=== PATIENT | female | born 1965 | race African-American/Black ===

== ENCOUNTER 2020-09-07 11:26 | Emergency (ER) | payer MEDICAID ==
[~2020-09-07] VITALS: Ht 152.4 cm; Wt 87.0 kg
[2020-09-07] MEDS ORDERED: ACETAMINOPHEN 325MG TABLET PO STA (11:57)
[2020-09-07] MEDS ORDERED: ONDANSETRON 4MG ODT PO STA (11:57)
[2020-09-07] MEDS ORDERED: FAMOTIDINE 20MG TABLET PO ONE (12:00)
[2020-09-07] MEDS ORDERED: MAGNESIUM CITRATE 300ML SOLUTION PO ONE (12:15)
[2020-09-07 12:21] LABS: BASOPHILS % 0.9 % (0.0-2.0); EOSINOPHILS % 2.5 % (0.0-5.0); HEMATOCRIT. 42.8 % (36.0-48.0); HEMOGLOBIN. 14.3 g/dL (12.0-16.0); LYMPHOCYTES % 28.3 % (20.0-50.0); MEAN CORPUSCULAR HEMOGLOBIN 32.3 pg (28.0-32.0); MEAN CORPUSCULAR VOLUME 96.5 fL (81.0-99.0); MEAN PLATELET VOLUME 9.3 fl (7.4-10.4); MONOCYTES % 5.1 % (2.0-8.0); NEUTROPHILS % 63.2 % (40.0-76.0); PLATELET 260 x1000/uL (130-400); RED BLOOD CELL COUNT 4.44 mill/uL (4.2-5.4); RED CELL DISTRIBUTION WIDTH 15.9 % (11.6-14.6)
[2020-09-07 12:26] LABS: CHLORIDE 107 mEq/L (98-107)
[2020-09-07 12:31] LABS: PROTHROMBIN TIME 10.1 sec (9.6-11.0)
[2020-09-07] MEDS ORDERED: SODIUM CHLORIDE 0.9% 1,000 ML IV ONE (13:15)
[2020-09-07] MEDS ORDERED: MORPHINE SULFATE 4 MG/ML CPJ (NOT FOR IM USE) IV SCH (14:30)
[2020-09-07] MEDS ORDERED: ONDA4TAB5 MT (17:27)
[2020-09-07 18:23] VITALS: BP 152/93
== END 2020-09-07 18:18 | disposition home or self-care (01) ==
LOC: ER 12:01 → CANBEDREQ 17:43 → ER 18:18
DX: K85.90 Acute pancreatitis without necrosis or infection, unspecified (principal); E11.9 Type 2 diabetes mellitus without complications; I10 Essential (primary) hypertension; Z98.890 Other specified postprocedural states; Z90.710 Acquired absence of both cervix and uterus; Z79.899 Other long term (current) drug therapy
CPT/HCPCS: 36415; 76705; 80053; 83690; 84478; 85025; 85610; 93005; 96361; 96374; 99285; J2270; Q0162

== ENCOUNTER 2020-09-21 21:56 | Emergency (ER) | payer MEDICAID ==
[~2020-09-21] VITALS: Ht 152.4 cm; Wt 91.0 kg
[~2020-09-21 21:56] MED LIST: ONDA4TAB5 MT
[2020-09-22 00:55] LABS: CLARITY URINE CLEAR (CLEAR); COLOR URINE YELLOW (YELLOW); KETONES URINE NEGATIVE (NEGATIVE); LEUKOCYTE ESTERASE URINE NEGATIVE (NEGATIVE); NITRITE URINE NEGATIVE (NEGATIVE); OCCULT BLOOD URINE NEGATIVE (NEGATIVE); PROTEIN URINE NEGATIVE (NEGATIVE); SPECIFIC GRAVITY URINE 1.004 (1.005-1.030); UROBILINOGEN URINE 0.2 E.U./dL (0.2-1.0)
[2020-09-22 01:00] LABS: BASOPHILS % 0.7 % (0.0-2.0); EOSINOPHILS % 4.3 % (0.0-5.0); HEMATOCRIT. 43.1 % (36.0-48.0); HEMOGLOBIN. 14.3 g/dL (12.0-16.0); LYMPHOCYTES % 35.3 % (20.0-50.0); MEAN CORPUSCULAR HEMOGLOBIN 31.6 pg (28.0-32.0); MONOCYTES % 5.9 % (2.0-8.0); NEUTROPHILS % 53.8 % (40.0-76.0); PLATELET 347 x1000/uL (130-400); RED BLOOD CELL COUNT 4.54 mill/uL (4.2-5.4); RED CELL DISTRIBUTION WIDTH 15.2 % (11.6-14.6)
[2020-09-22 01:10] LABS: CHLORIDE 105 mEq/L (98-107)
[2020-09-22] MEDS: SODIUM CHLORIDE 0.9% 1,000 ML IV ONE (01:11)
[2020-09-22] MEDS: HALOPERIDOL LACTATE 5MG/ML VIAL IM ONE (01:11)
[2020-09-22 01:46] LABS: PROTHROMBIN TIME 10.7 sec (9.6-11.0)
[2020-09-22] MEDS ORDERED: FAMO-135 MT (02:41)
[2020-09-22] MEDS ORDERED: METO-293 MT (02:41)
[2020-09-22] MEDS: VISCOUS LIDOCAINE 2% 15 ML UDC PO ONE (02:45)
[2020-09-22] MEDS: FAMOTIDINE 20MG TABLET PO NR (02:46)
[2020-09-22] MEDS: MAGNESIUM/ALUMINUM HYDROXIDE/SIMETHICONE 30ML UDC PO ONE (02:46)
[2020-09-22] MEDS ORDERED: IOHEXOL-300 100 ML BOTTLE ONE (03:15)
[2020-09-22 04:31] VITALS: BP 135/88
== END 2020-09-22 04:32 | disposition home or self-care (01) ==
LOC: ER 21:56
DX: R10.11 Right upper quadrant pain (principal); E11.9 Type 2 diabetes mellitus without complications; I10 Essential (primary) hypertension; Z87.19 Personal history of other diseases of the digestive system; Z90.710 Acquired absence of both cervix and uterus
CPT/HCPCS: 36415; 74177; 80053; 81003; 82962; 83605; 83690; 85025; 85610; 93005; 96360; 96372; 99285; J1630; J7030; Q9967